=== PATIENT | male | born 1975 | race Two or more races ===

== ENCOUNTER 2023-04-16 20:33 | Emergency (ER) | payer BC, OTHER ==
[~2023-04-16] VITALS: Ht 175.3 cm; Wt 97.7 kg
[2023-04-16] MEDS: cloNIDine HCL 0.1 MG TAB PO ONE (21:03)
[2023-04-16] MEDS ORDERED: MORPHINE SULFATE INJ 2 MG/ml SYRG IM ONE (23:15)
[2023-04-17] MEDS: ONDANSETRON ODT 4 MG TAB PO ONE (00:01)
[2023-04-17] MEDS: MORPHINE SULFATE INJ 2 MG/ml SYRG IM ONE (00:03)
[2023-04-17 00:34] VITALS: BP 103/61; PULSE 89; RESP 20; O2SAT 95
[2023-04-17] MEDS ORDERED: CYCL-837 PO (00:35)
[2023-04-17] MEDS ORDERED: ACE3T PO ×2 (00:35→00:36)
== END 2023-04-17 01:17 | disposition home or self-care (01) ==
LOC: ER 20:33
DX: S46.811A Strain of other muscles, fascia and tendons at shoulder and upper arm level, right arm, initial encounter (principal); I10 Essential (primary) hypertension; Z79.899 Other long term (current) drug therapy; X58.XXXA Exposure to other specified factors, initial encounter; Y93.74 Activity, frisbee; Y92.89 Other specified places as the place of occurrence of the external cause; Y99.8 Other external cause status
CPT/HCPCS: 73030; 93971; 96372; 99285; J2270; Q0162